=== PATIENT | male | born 1985 | race Two or more races ===

== ENCOUNTER 2016-09-25 12:29 | Emergency (ER) | payer SELFPAY ==
[2016-09-25 12:59] VITALS: BP 151/72; PULSE 89; TEMP 97.7; BMI 25.8
[2016-09-25] MEDS ORDERED: ALBUTEROL 6.7 GM MDI INH ONE ×2 (13:03→13:17)
--- NOTE | 2016-09-25 13:05 | EDPRACDOC ---
- General Information Chief Complaint: Flu-Like Symptoms Stated Complaint: CHEST CONGESTION/COUGH Time Seen by Provider: 09/25/16 12:59 Information Source: Patient Mode Of Arrival: Car Home Medications: Home Medications Humulin 70-30 [NOVOLIN or HUMULIN 70-30 INSULIN MIX] 50 unit SQ DAILY 10/18/12 Lisinopril [Prinivil] 5 mg PO DAILY #30 tablet 04/29/16 Acetaminophen [Tylenol Extra Strength] 500 mg PO Q6 #14 tablet 06/26/16 Ciprofloxacin HCl [Cipro] 500 mg PO BID #20 tab 06/26/16 Acetaminophen with Codeine [TYLENOL WITH CODEINE; [employer] with Codeine] 5 ml PO Q6H PRN #120 ml 09/25/16 Azithromycin [Zithromax] 250 mg PO DAILY #6 tablet 09/25/16 Prednisone [Deltasone, Orasone] 20 mg PO DAILY #20 tab 09/25/16 Allergies/Adverse Reactions: Allergies Allergy/AdvReac Type Severity Reaction Status Date / Time ibuprofen Allergy Severe Edema-Oral/ Verified 06/26/16 17:09 Lip tramadol Allergy See Verified 06/26/16 17:09 Comments - History of Present Illness Onset: 1 month HPI: Pt c/o productive cough, congestion, sob x 1 month. Denies fever, earache, sore throat, cp, abd pain, n/v, changes in bowel or bladder, rash. Current Symptoms: Reports: Cough, Nasal Symptoms Shortness of Breath: Mild Cough: Reports: Productive Rhinorrhea: Reports: Clear Ear Symptoms: Reports: None Fever Severity/Quality: Reports: no fever Oral Intake: Normal Urinary Output: Normal Relevant History of: None Associated Signs & Symptoms:: Reports: Cough, Nasal Symptoms ED Past Medical History - History Reviewed Yes Nurses notes reviewed and agree except as marked - Patient Medical History Cardiac History: Reports: Hypertension Psychological History: Reports: Depression, Bipolar Disorder (? not confirmed). Denies: Anxiety, Substance Use Disorder Systemic History: Reports: Diabetes (Type 1. Uses 70/30 insulin bid. Dx 1993.) Surgical History: Reports: Cholecystectomy - Family Medical History Reports: Hypertension, Cancer. Denies: Diabetes, Stroke, Cardiac Disorders - Social Medical History Smoking Status: Never smoker (chews tobacco) Social History: Denies: Substance Use Disorder ETOH: None Substance Abuse: None EDM Review of Systems - Review of Systems Constitutional: No Symptoms Reported. negative: Fever, Chills, Weakness, Fatigue, Loss of Appetite Ears: No Symptoms Reported. negative: Pain, Hearing Loss, Drainage, Ear Pulling Throat: No Symptoms Reported. negative: Pain, Swelling Nose: Congestion Mouth: No Symptoms Reported. negative: Pain, Drooling Respiratory: Cough, Shortness of Breath Cardiovascular: No Symptoms Reported. negative: Chest Pain, Palpitations, Syncope, Edema, Orthopnea, PND, Skin Mottling, Cyanosis Gastrointestinal: No Symptoms Reported. negative: Pain, Constipation, Nausea, Vomiting, Diarrhea, Melena, Formula Intolerance Genitourinary: No Symptoms Reported. negative: Dysuria, Hematuria, Frequency, Discharge, Bleeding, Testicular Pain, Neurological: No Symptoms Reported. negative: Headache, Dizziness, Seizure, Numbness, Weakness, Speech Difficulty, Gait Difficulty Musculoskeletal: No Symptoms Reported. negative: Neck, Chestwall, Ribs, Back, Shoulder, Arm, Elbow, Forearm, Wrist, Hand, Pelvis, Hip, Femur, Knee, Leg, Ankle , Foot Integumentary: No Symptoms Reported. negative: Itching, Rash, Bruising, Wound Allergic/Immunologic: No Symptoms Reported. negative: Hives, Itching Hematologic: No Symptoms Reported. negative: Lymphadenopathy, Easy Bruising, Easy Bleeding Psychiatric: No Symptoms Reported. negative: Anxiety, Depression, Hallucinations, Insomnia, Suicidal - Physical Exam Constitutional: Alert Oriented to: Time, Person, Place Last recorded Vital Signs: Last Vital Signs Temp 97.7 F 09/25/16 12:56 Pulse 89 09/25/16 12:56 Resp 18 09/25/16 12:56 BP 151/72 09/25/16 12:56 Pulse Ox 98 09/25/16 12:56 Oxygen Pulse Oxygen Saturation 98 O2 Device Room Air Oxygen Flow Rate Fraction of Inspired Oxygen ( FIO2) - HEENT Head: Normal ( normocephalic) Eye Exam: Normal (PERRL, EOMI, Sclera white) Oropharynx: Normal (Pharynx:Moist without exudate,Gums-no swelling) Tympanic Membrane: Normal ENT EAC: Normal Nose: Congestion Neck: Normal (FROM, trachea at midline) - Respiratory/Cardiovascular Respiratory: Normal - CTA (BBS clear to auscultation without adventitious sounds ) Cardiovascular: Normal (RRR without murmur, gallop or rub) - GI Auscultation: Normal (NABS) Palpation: Normal (Soft,No rebound or guarding, non distended) Tenderness: Non tender - Musculoskeletal Back: Normal (Non-Tender) Extremities: Normal (Normal tone, Pulses 2+ No cyanosis or edema, FROM) - Integumentary Skin: Normal, Warm, Dry Lymphatics: Normal (no adenopathy) - Neurologic Memory Impaired: Normal Motor Function: Normal (Normal tone, Pulses 2+ No cyanosis or edema, FROM) Mood Description: Normal Perception: Normal - Differential Diagnosis Bronchitis, Pneumonia, URI, Viral - Additional Information unable to obtain xray today with tx as possible PNA Decision Time to Discharge: 13:05 - Departure Disposition: Home Condition: Good Final Diagnosis: Acute bronchitis, Acute upper respiratory infection Instructions: Upper Respiratory Infection (ED), Acute Bronchitis (ED) Education/Counseling Given To: Patient Education/Counseling Given Regarding: Diagnosis, Treatment, Follow Up Referrals: None,No Provider [Primary Care Provider] - One Week Nikos Boudreaux MD [Staff Physician] - One Week Prescriptions: Acetaminophen with Codeine [TYLENOL WITH CODEINE; [employer] with Codeine] 5 ml PO Q6H PRN #120 ml PRN Reason: Cough Azithromycin [Zithromax] 250 mg PO DAILY #6 tablet Prednisone [Deltasone, Orasone] 20 mg PO DAILY #20 tab Additional Instructions: Albuterol MDI 1-2 puffs every 4-6 hours as needed for shortness of breath.
== END 2016-09-25 13:28 | disposition home or self-care (01) ==
LOC: EDMC 12:29
DX: J20.9 Acute bronchitis, unspecified (principal); J06.9 Acute upper respiratory infection, unspecified; I10 Essential (primary) hypertension; E10.9 Type 1 diabetes mellitus without complications; Z79.4 Long term (current) use of insulin; Z72.0 Tobacco use
CPT/HCPCS: 94640; 94664; 99282; J3490